=== PATIENT | female | born 1945 | race Caucasian/White ===

== ENCOUNTER 2022-07-17 20:10 | Emergency (ER) | payer OTHER ==
[2022-07-17 20:32] VITALS: TEMP 96.9; BMI 24.0
[2022-07-17] MEDS ORDERED: SODIUM PHOSPHATE/NA BIPHOS 133 ML ENEMA PR ONE (21:48)
[2022-07-17 22:37] LABS: EPI CELLS 6 /uL (0-25.1); HYALINE CASTS 0 /uL (0-3.1); PH,URINE 7.5 (5.0-8.0); URINE APPEARANCE CLEAR; URINE BACTERIA 37 /uL (0-1359); URINE BILIRUBIN NEGATIVE (NEGATIVE); URINE COLOR YELLOW; URINE GLUCOSE (UA) NEGATIVE (NEGATIVE); URINE KETONE TRACE (NEGATIVE); URINE LEUK ESTERASE TRACE (NEGATIVE); URINE NITRITE NEGATIVE (NEGATIVE); URINE PROTEIN NEGATIVE (NEGATIVE); URINE RBC 8 /uL (0-23.9); URINE UROBILINOGEN 0.2 mg/dL (0.2-1.0); URINE WBC 13 /uL (0-25.8)
[2022-07-18 04:53] VITALS: BP 166/68; PULSE 70; RESP 20
== END 2022-07-18 05:12 ==
LOC: JER 20:10
DX: K62.89 Other specified diseases of anus and rectum (principal); K59.00 Constipation, unspecified
CPT/HCPCS: 81003; 87086; 99284-25

== ENCOUNTER 2023-07-03 11:22 | Inpatient (IN) | payer OTHER ==
[2023-07-03 13:26] LABS: BASO % 0.4 % (0-2.0); EOS % 0.4 % (0-4.5); HEMATOCRIT 26.4 % (32.4-45.2); HEMOGLOBIN 8.5 GM/dL (10.7-15.3); LYMPH % 15.1 % (8-40); MCH 21.6 pg (25.7-33.7); MCHC 32.2 g/dl (32.0-36.0); MEAN CELL VOLUME 67.2 fl (80-96); MEAN PLT VOLUME 7.3 fl (7.5-11.1); MONO % 7.6 % (3.8-10.2); NEUT % 76.5 % (42.8-82.8); PLATELET COUNT 323 10^3/uL (134-434); RBC 3.92 M/mm3 (3.60-5.2); RDW 17.2 % (11.6-15.6); WHITE BLOOD COUNT 7.8 K/mm3 (4.0-10.0)
[2023-07-03 13:33] LABS: INR 1.18 (0.83-1.09); PROTHROMBIN TIME (PATIENT) 13.7 SEC (9.7-13.0)
[2023-07-03 13:36] LABS: ACTIVATED PTT 33.5 SECONDS (25.2-36.5)
[2023-07-03 13:40] LABS: POTASSIUM 4.5 mmol/L (3.5-5.1)
[2023-07-03 13:42] LABS: CALCIUM 9.7 mg/dL (8.5-10.1)
[2023-07-03 13:43] LABS: ALBUMIN 3.6 g/dl (3.4-5.0); BLOOD UREA NITROGEN 17.8 mg/dL (7-18); MAGNESIUM 2.4 mg/dL (1.8-2.4)
[2023-07-03 13:47] LABS: BILIRUBIN,TOTAL 0.5 mg/dL (0.2-1); TOT PROT 7.2 g/dl (6.4-8.2)
[2023-07-03 17:22] LABS: ANISOCYTOSIS 2+; MACROCYTOSIS 0
[2023-07-03] MEDS ORDERED: VENLAFAXINE HCL 75 MG TABLET ONE (20:56)
[2023-07-03] MEDS ORDERED: ATORVASTATIN CA 20 MG TABLET (FP) ONE (20:56)
[2023-07-03] MEDS ORDERED: hydrALAZINE HCL 25 MG TABLET (FP) ONE (20:57)
[2023-07-03] MEDS: hydrALAZINE HCL 25 MG TABLET (FP) PO SCH (21:15)
[2023-07-03] MEDS: VENLAFAXINE HCL 150 MG E.R. CAPSULE PO SCH (21:15)
[2023-07-03] MEDS: ATORVASTATIN CA 20 MG TABLET (FP) PO SCH (21:15)
[2023-07-03 21:52] LABS: EPI CELLS 13 /uL (0-25.1); HYALINE CASTS 0 /uL (0-3.1); URINE APPEARANCE CLEAR; URINE BACTERIA 186 /uL (0-1359); URINE BILIRUBIN NEGATIVE (NEGATIVE); URINE COLOR YELLOW; URINE GLUCOSE (UA) NEGATIVE (NEGATIVE); URINE KETONE TRACE (NEGATIVE); URINE LEUK ESTERASE TRACE (NEGATIVE); URINE NITRITE NEGATIVE (NEGATIVE); URINE PROTEIN NEGATIVE (NEGATIVE); URINE UROBILINOGEN 0.2 mg/dL (0.2-1.0); URINE WBC 27 /uL (0-25.8)
[2023-07-03 23:53] VITALS: BMI 25.0
[2023-07-04] MEDS ORDERED: IRON SUCROSE INJECTION 200 MG in SODIUM CHLORIDE 90 ML IVPB ONE (08:41)
[2023-07-04] MEDS ORDERED: ENOXAPARIN NA (PORCINE) 40 MG/0.4 ML DISP.SYRIN SQ SCH (10:00)
[2023-07-04] MEDS: hydrALAZINE HCL 25 MG TABLET (FP) PO SCH ×2 (10:02→22:03)
[2023-07-04 11:03] LABS: BASO % 0.5 % (0-2.0); EOS % 1.3 % (0-4.5); HEMATOCRIT 25.5 % (32.4-45.2); HEMOGLOBIN 8.1 GM/dL (10.7-15.3); LYMPH % 29.4 % (8-40); MCH 21.5 pg (25.7-33.7); MCHC 31.7 g/dl (32.0-36.0); MEAN CELL VOLUME 67.9 fl (80-96); MEAN PLT VOLUME 7.1 fl (7.5-11.1); MONO % 8.2 % (3.8-10.2); NEUT % 60.6 % (42.8-82.8); PLATELET COUNT 330 10^3/uL (134-434); RBC 3.75 M/mm3 (3.60-5.2); RDW 17.2 % (11.6-15.6)
[2023-07-04 11:34] LABS: CALCIUM 9.1 mg/dL (8.5-10.1)
[2023-07-04 11:35] LABS: ALBUMIN 3.3 g/dl (3.4-5.0); BLOOD UREA NITROGEN 10.3 mg/dL (7-18); MAGNESIUM 2.2 mg/dL (1.8-2.4)
[2023-07-04 11:38] LABS: CREATININE 0.8 mg/dL (0.55-1.3); PHOSPHOROUS 4.4 mg/dL (2.5-4.9)
[2023-07-04 11:39] LABS: BILIRUBIN,TOTAL 0.7 mg/dL (0.2-1); TOT PROT 6.6 g/dl (6.4-8.2)
[2023-07-04] MEDS: ATORVASTATIN CA 20 MG TABLET (FP) PO SCH (22:03)
[2023-07-04] MEDS ORDERED: VENLAFAXINE HCL 75 MG E.R. CAPSULES PO SCH (22:37)
[2023-07-04] MEDS: VENLAFAXINE HCL 75 MG E.R. CAPSULES PO SCH (23:05)
[2023-07-04] MEDS: VENLAFAXINE HCL 150 MG E.R. CAPSULE PO SCH (23:05)
[2023-07-05] MEDS: hydrALAZINE HCL 25 MG TABLET (FP) PO SCH ×2 (09:15→21:20)
[2023-07-05] MEDS ORDERED: IRON SUCROSE INJECTION 200 MG in SODIUM CHLORIDE 90 ML IVPB ONE (09:15)
[2023-07-05 11:10] LABS: HEMATOCRIT 24.1 % (32.4-45.2); HEMOGLOBIN 7.6 GM/dL (10.7-15.3); MCH 21.6 pg (25.7-33.7); MCHC 31.7 g/dl (32.0-36.0); MEAN CELL VOLUME 68.2 fl (80-96); MEAN PLT VOLUME 7.3 fl (7.5-11.1); PLATELET COUNT 298 10^3/uL (134-434); RBC 3.54 M/mm3 (3.60-5.2); RDW 17.5 % (11.6-15.6); WHITE BLOOD COUNT 5.4 K/mm3 (4.0-10.0)
[2023-07-05 11:18] LABS: POTASSIUM 4.1 mmol/L (3.5-5.1)
[2023-07-05 11:21] LABS: CALCIUM 8.6 mg/dL (8.5-10.1)
[2023-07-05 11:23] LABS: BLOOD UREA NITROGEN 12.8 mg/dL (7-18); MAGNESIUM 2.2 mg/dL (1.8-2.4)
[2023-07-05 11:25] LABS: CREATININE 0.7 mg/dL (0.55-1.3); PHOSPHOROUS 3.8 mg/dL (2.5-4.9)
[2023-07-05] MEDS: ATORVASTATIN CA 20 MG TABLET (FP) PO SCH (21:19)
[2023-07-05] MEDS: VENLAFAXINE HCL 75 MG E.R. CAPSULES PO SCH (21:20)
[2023-07-05] MEDS ORDERED: VENLAFAXINE HCL 75 MG E.R. CAPSULES PO SCH (22:00)
[2023-07-06] MEDS: hydrALAZINE HCL 25 MG TABLET (FP) PO SCH ×2 (09:08→21:13)
[2023-07-06 09:57] LABS: HEMATOCRIT 22.4 % (32.4-45.2); HEMOGLOBIN 7.2 GM/dL (10.7-15.3); MCH 21.8 pg (25.7-33.7); MEAN PLT VOLUME 7.1 fl (7.5-11.1); PLATELET COUNT 295 10^3/uL (134-434); RBC 3.29 M/mm3 (3.60-5.2); RDW 17.4 % (11.6-15.6)
[2023-07-06] MEDS: VENLAFAXINE HCL 75 MG E.R. CAPSULES PO SCH (21:13)
[2023-07-06] MEDS: ATORVASTATIN CA 20 MG TABLET (FP) PO SCH (21:14)
[2023-07-07] MEDS ORDERED: ACETAMINOPHEN 325 MG TABLET (FP) PO PRN (01:24)
[2023-07-07 09:43] LABS: HEMATOCRIT 22.4 % (32.4-45.2); HEMOGLOBIN 7.1 GM/dL (10.7-15.3); MCH 21.7 pg (25.7-33.7); MCHC 31.6 g/dl (32.0-36.0); MEAN CELL VOLUME 68.7 fl (80-96); MEAN PLT VOLUME 6.8 fl (7.5-11.1); PLATELET COUNT 316 10^3/uL (134-434); RBC 3.26 M/mm3 (3.60-5.2); RDW 17.6 % (11.6-15.6); WHITE BLOOD COUNT 5.5 K/mm3 (4.0-10.0)
[2023-07-07] MEDS: hydrALAZINE HCL 25 MG TABLET (FP) PO SCH (09:51)
[2023-07-07 10:01] LABS: CALCIUM 8.5 mg/dL (8.5-10.1)
[2023-07-07 10:03] LABS: BLOOD UREA NITROGEN 10.8 mg/dL (7-18)
[2023-07-07 10:06] LABS: CREATININE 0.7 mg/dL (0.55-1.3)
[2023-07-07 10:57] VITALS: BP 118/66; PULSE 90; RESP 16; TEMP 98
== END 2023-07-07 12:13 | DRG 884 ==
LOC: JER 11:22 → INTOOBSV 15:18 → JERBED 15:18 → UNDOADMOB 15:18 → JERBED 16:04 → J6S 22:19 → OBSVTOIN 07-04 10:49
PROVIDERS: ADMIT Internal Medicine; ATTEND Internal Medicine
DX: F03.90 Unspecified dementia, unspecified severity, without behavioral disturbance, psychotic disturbance, mood disturbance, and anxiety (principal); R29.6 Repeated falls; J44.9 Chronic obstructive pulmonary disease, unspecified; I10 Essential (primary) hypertension; D50.9 Iron deficiency anemia, unspecified; K21.9 Gastro-esophageal reflux disease without esophagitis; E78.5 Hyperlipidemia, unspecified
CPT/HCPCS: 0241U-QW; 36415; 70450-TC; 71045-TC-FY; 72125-TC; 72128-TC; 72170-TC-FY; 73562-TC-RT-FY; 80048; 80053; 81003; 82607; 82728; 83540; 83550; 83735; 84100; 84443; 84484; 85025; 85027; 85045; 85610; 85730; 87086; 87186; 87635; 93005; 93010; 97116-GP; 97162-GP; 99285-25; G0378; J1756